=== PATIENT | male | born 1970 | race Caucasian/White ===

== ENCOUNTER 2019-07-16 16:10 | Observation (INO) | payer OTHER ==
[2019-07-16] MEDS ORDERED: SODIUM CHLORIDE 0.9% 1,000 ML IV STA (16:25)
--- NOTE | 2019-07-16 16:28 | ED ---
General Adult HPI - General Chief complaint: Alcohol Stated complaint: ETOH Time Seen by Provider: 07/16/19 16:15 Source: patient, EMS, RN notes reviewed Mode of arrival: EMS Limitations: no limitations - History of Present Illness Initial comments: Patient is a pleasant 48-year-old male presenting to the emergency Department with concerns for alcohol abuse and intoxication. Patient was trying to go to [facility] today and he was refused secondary to a level 0.35. Patient admits to drinking alcohol heavily for the past several days. Patient did have some alcohol today. Patient has no other complaints other than alcohol problems and alcohol intoxication. No depression or suicidal thoughts. No recent injury. Review of Systems ROS Statement: Those systems with pertinent positive or pertinent negative responses have been documented in the HPI. ROS Other: All systems not noted in ROS Statement are negative. Constitutional: Denies: fever Eyes: Denies: eye pain ENT: Denies: ear pain Respiratory: Denies: cough Cardiovascular: Denies: chest pain Endocrine: Denies: fatigue Gastrointestinal: Denies: abdominal pain, nausea, vomiting Genitourinary: Denies: dysuria Musculoskeletal: Denies: back pain Skin: Denies: rash Neurological: Denies: weakness Past Medical History Past Medical History: Hypertension History of Any Multi-Drug Resistant Organisms: None Reported Past Psychological History: Anxiety, Depression Smoking Status: Current some day smoker Past Alcohol Use History: None Reported, Abuse, Daily Past Drug Use History: None Reported General Exam Limitations: no limitations General appearance: alert, in no apparent distress Head exam: Present: normocephalic Eye exam: Present: normal appearance, PERRL, EOMI, nystagmus ENT exam: Present: normal oropharynx Neck exam: Present: normal inspection Respiratory exam: Present: normal lung sounds bilaterally Cardiovascular Exam: Present: regular rate, normal rhythm GI/Abdominal exam: Present: soft. Absent: distended, tenderness Extremities exam: Present: normal inspection Neurological exam: Present: alert Psychiatric exam: Present: normal affect, normal mood Skin exam: Present: normal color Course Vital Signs 07/16/19 16:12 Temperature 97.7 F Pulse Rate 101 H Respiratory 16 Rate Blood Pressure 138/97 O2 Sat by Pulse 94 L Oximetry Medical Decision Making - Medical Decision Making Patient reevaluated. Case was discussed in detail with Dr. Schneider, who will admit covering for hospital call. - Lab Data Result diagrams: 07/16/19 16:40 03/09/20 16:40 Lab Results 07/16/19 07/16/19 07/16/19 Range/Units 16:40 16:40 16:40 WBC 4.5 (3.8-10.6) k/uL RBC 4.33 (4.30-5.90) m/uL Hgb 11.0 L (13.0-17.5) gm/dL Hct 35.4 L (39.0-53.0) % MCV 81.7 (80.0-100.0) fL MCH 25.5 (25.0-35.0) pg MCHC 31.2 (31.0-37.0) g/dL RDW 17.5 H (11.5-15.5) % Hypochromasia Moderate Anisocytosis Slight PT 11.3 (9.0-12.0) sec INR 1.1 (<1.2) Sodium 141 (137-145) mmol/L Potassium 3.9 (3.5-5.1) mmol/L Chloride 104 (98-107) mmol/L Carbon Dioxide 22 (22-30) mmol/L Anion Gap 15 mmol/L BUN 13 (9-20) mg/dL Creatinine 0.57 L (0.66-1.25) mg/dL Est GFR (CKD-EPI)AfAm >90 (>60 ml/min/1.73 sqM) Est GFR (CKD-EPI)NonAf >90 (>60 ml/min/1.73 sqM) Glucose 89 (74-99) mg/dL Calcium 8.8 (8.4-10.2) mg/dL Magnesium 1.4 L (1.6-2.3) mg/dL Total Bilirubin 0.4 (0.2-1.3) mg/dL AST 125 H (17-59) U/L ALT 56 H (4-49) U/L Alkaline Phosphatase 83 (38-126) U/L Total Protein 8.1 (6.3-8.2) g/dL Albumin 4.7 (3.5-5.0) g/dL Amylase 50 (30-110) U/L Lipase 239 (23-300) U/L Serum Alcohol 293 H* mg/dL Disposition Clinical Impression: Alcoholic intoxication Disposition: ADMITTED IP TO THIS [facility] Is patient prescribed a controlled substance at d/c from ED?: No Referrals: None,Stated [Primary Care Provider] - 1-2 days Decision Time: 17:20
[2019-07-16 16:58] LABS: INR 1.1 (<1.2); Prothrombin Time 11.3 sec (9.0-12.0)
[2019-07-16 17:03] LABS: ALT 56 U/L (4-49); AST 125 U/L (17-59); African American GFR (CKD) >90 (>60 ml/min/1.73 sqM); Albumin 4.7 g/dL (3.5-5.0); Alkaline Phosphatase 83 U/L (38-126); Amylase 50 U/L (30-110); Anion Gap 15 mmol/L; Blood Urea Nitrogen 13 mg/dL (9-20); Calcium 8.8 mg/dL (8.4-10.2); Carbon Dioxide 22 mmol/L (22-30); Chloride 104 mmol/L (98-107); Glucose 89 mg/dL (74-99); Magnesium 1.4 mg/dL (1.6-2.3); Non-African American GFR(CKD) >90 (>60 ml/min/1.73 sqM); Potassium 3.9 mmol/L (3.5-5.1); Sodium 141 mmol/L (137-145); Total Bilirubin 0.4 mg/dL (0.2-1.3); Total Protein 8.1 g/dL (6.3-8.2)
[2019-07-16 17:10] LABS: Alcohol 293 mg/dL
[2019-07-16 17:17] LABS: Anisocytosis Slight; Basophils % (A) 1 %; Eosinophils % (A) 1 %; HCT 35.4 % (39.0-53.0); Hypochromasia Moderate; Lymphocytes # (A) 1.2 k/uL (1.0-4.8); Lymphocytes % (A) 28 %; MCH 25.5 pg (25.0-35.0); MCHC 31.2 g/dL (31.0-37.0); MCV 81.7 fL (80.0-100.0); Mean Platelet Volume 9.1; Monocytes # (A) 0.3 k/uL (0-1.0); Monocytes % (A) 6 %; Neutrophils # (A) 2.7 k/uL (1.3-7.7); Neutrophils % (A) 61 %; RBC 4.33 m/uL (4.30-5.90); RDW 17.5 % (11.5-15.5); WBC 4.5 k/uL (3.8-10.6)
[2019-07-16] MEDS ORDERED: NALOXONE 0.4 MG/ML 1 ML VIAL IV PRN (17:20)
[2019-07-16] MEDS ORDERED: LORazepam 2 MG/ML INJ IV PRN ×2 (17:22)
[2019-07-16 17:33] LABS: Poikilocytosis (M) Present; Target Cells Present
[2019-07-16 17:34] LABS: Platelet Count 75 k/uL (150-450)
[2019-07-16] MEDS: THIAMINE 100 MG TAB PO SCH (18:01)
[2019-07-16] MEDS ORDERED: HALOPERIDOL LACTATE 5 MG/ML 1 ML VIAL IM PRN (19:49)
[2019-07-16] MEDS ORDERED: Potassium Replacement Protocol 1 EACH MISC MISCELLANE PRN (20:01)
[2019-07-16] MEDS ORDERED: HYDROcodone/APAP 5-325MG 1 EACH TAB PO PRN (20:01)
[2019-07-16] MEDS ORDERED: Magnesium Replacement Protocol 1 EACH MISC MISCELLANE PRN (20:01)
[2019-07-16] MEDS ORDERED: TEMAZEPAM 15 MG CAP PO PRN (20:01)
[2019-07-16] MEDS: LORazepam 2 MG/ML INJ IV PRN (20:26)
[2019-07-16] MEDS: NICOTINE 14MG/24HR PATCH TRANSDERM SCH (20:26)
[2019-07-16] MEDS: busPIRone HCl 10 MG TAB PO SCH (20:26)
[2019-07-16] MEDS: traZODone HCL 100 MG TAB PO SCH (20:26)
[2019-07-16] MEDS: FAMOTIDINE 20 MG TAB PO SCH (20:26)
[2019-07-16 20:51] LABS: ALT 46 U/L (4-49); AST 105 U/L (17-59); African American GFR (CKD) >90 (>60 ml/min/1.73 sqM); Alkaline Phosphatase 67 U/L (38-126); Anion Gap 11 mmol/L; Blood Urea Nitrogen 12 mg/dL (9-20); Calcium 8.4 mg/dL (8.4-10.2); Carbon Dioxide 26 mmol/L (22-30); Chloride 101 mmol/L (98-107); Glucose 117 mg/dL (74-99); Non-African American GFR(CKD) >90 (>60 ml/min/1.73 sqM); Potassium 3.8 mmol/L (3.5-5.1); Sodium 138 mmol/L (137-145); Total Bilirubin 0.3 mg/dL (0.2-1.3); Total Protein 6.9 g/dL (6.3-8.2)
--- NOTE | 2019-07-16 21:44 | HP ---
HISTORY AND PHYSICAL DATE OF SERVICE: 07/16/2019. HISTORY OF PRESENT ILLNESS: This 48-year-old gentleman who was admitted alcohol intoxication is being followed by primary physician in the [place] area. The patient apparently taking significant alcohol. The patient presented to [facility]. Apparently because the patient is apparently too drunk, the patient was sent to [facility] for further evaluation and treatment. Serum alcohol was 293. There is no history of fever, rigors. No history of headache, loss of consciousness or seizures. The patient had previous history of hypertension, anxiety, depression, and DTs also. PAST MEDICAL HISTORY: History of hypertension, history of anxiety, depression, DTs, history of alcohol intake. MEDICATIONS: 1. Trazodone 100 mg q.h.s. 2. BuSpar 10 mg p.o. b.i.d. 3. Celexa 20 mg daily. ALLERGIES: None. FAMILY HISTORY: History of diabetes in the family. SOCIAL HISTORY: History of smoking and alcohol. REVIEW OF SYSTEMS: ENT: No diminished vision. No diminished hearing. CARDIOVASCULAR: No angina or palpitations. RESPIRATORY: As mentioned earlier. GI No nausea, vomiting, diarrhea. no dysuria. NERVOUS SYSTEM: No numbness or weakness. ALLERGY/IMMUNOLOGY: No asthma or hayfever. MUSCULOSKELETAL as mentioned earlier. HEMATOLOGY/ONCOLOGY: No history of anemia. ENDOCRINE: No history of diabetes or hypothyroidism. CONSTITUTIONAL: As mentioned earlier. DERMATOLOGY: Negative. RHEUMATOLOGY negative. PSYCHIATRY as mentioned earlier. PHYSICAL EXAMINATION: The patient is alert and oriented times three. Pulse is 117. Blood pressure 133/82, respiration 20, temperature 98.4, pulse ox 97 percent on room air. HEENT: Conjunctivae normal. Oral mucosa moist. NECK is no jugular venous distention. No carotid bruit. No lymph node enlargement. Cardiovascular system: S1, S2. No S3, no S4. RESPIRATORY: Breath sounds diminished in the bases. A few scattered rhonchi. No crackles. ABDOMEN: Soft, nontender. No mass palpable. LEGS: No edema. No swelling. NERVOUS SYSTEM: Higher functions as mentioned earlier. Moves all four limbs. Minimal diffuse tremors present. LYMPHATICS: No lymph nodes palpable in the neck, axillae or groin. SKIN: No ulcers, rashes. JOINTS no active deforming arthropathy. LABS: At this time shows WBC 4.2, hemoglobin 11, platelets 75. Magnesium 1.4. AST 125, ALT is 56. Serum alcohol 293. ASSESSMENT: 1. Acute alcohol intoxication, present on admission. 2. Acute delirium tremens, early. 3. Hypomagnesemia. 4. Increased AST/ALT, alcoholic hepatitis. 5. Anemia, normocytic secondary to nutritional possibly. 6. Thrombocytopenia. 7. History of hypertension. 8. History of anxiety, depression. 9. History of DTs. 10.History of nicotine dependence. 11.History of ETOH. 12.FULL CODE. RECOMMENDATIONS AND DISCUSSION: This 48-year-old gentleman who presented with multiple complex medical issues, we will monitor the patient closely, continue the current medications, management and symptomatic treatment. I recommend resume the home medications and also add CIWA protocol. Otherwise, replace magnesium and check lytes closely. Supplement vitamins. Prognosis guarded because of multiple complex medical issues. Further recommendations to follow. Discussed with the patient who understands and agrees. Prognosis guarded. Watch for DT precautions and as well as alcohol withdrawal precautions. MMODL / IJN: [id number] /
[2019-07-17 04:55] VITALS: RESP 16
[2019-07-17] MEDS: LORazepam 2 MG/ML INJ IV PRN ×3 (05:13→13:51)
[2019-07-17] MEDS: THIAMINE 100 MG TAB PO SCH ×2 (07:59→16:55)
[2019-07-17] MEDS: PANTOPRAZOLE 40 MG TABLET PO SCH (07:59)
[2019-07-17] MEDS: CITALOPRAM HYDROBROMIDE 20 MG TAB PO SCH (08:00)
[2019-07-17] MEDS: NICOTINE 14MG/24HR PATCH TRANSDERM SCH (08:00)
[2019-07-17] MEDS: busPIRone HCl 10 MG TAB PO SCH ×2 (08:00→21:28)
[2019-07-17] MEDS: FAMOTIDINE 20 MG TAB PO SCH (08:00)
[2019-07-17 09:08] LABS: Anisocytosis Slight; Basophils % (A) 1 %; Eosinophils % (A) 1 %; HCT 30.5 % (39.0-53.0); Hypochromasia Slight; Lymphocytes # (A) 0.7 k/uL (1.0-4.8); Lymphocytes % (A) 31 %; MCH 25.7 pg (25.0-35.0); MCV 82.7 fL (80.0-100.0); Mean Platelet Volume 9.6; Monocytes # (A) 0.2 k/uL (0-1.0); Monocytes % (A) 9 %; Neutrophils # (A) 1.2 k/uL (1.3-7.7); Neutrophils % (A) 54 %; RBC 3.68 m/uL (4.30-5.90); RDW 18.2 % (11.5-15.5); WBC 2.3 k/uL (3.8-10.6)
[2019-07-17 09:16] LABS: HGB 9.5 gm/dL (13.0-17.5); Platelet Count 61 k/uL (150-450)
[2019-07-17] MEDS ORDERED: Magnesium Replacement Protocol 1 EACH MISC MISCELLANE PRN (17:33)
[2019-07-17] MEDS: MAGNESIUM SULFATE-D5W PMX 1 GM in DEXTROSE/WATER 1 100ML.BAG IVPB SCH ×3 (18:04→21:29)
[2019-07-17 18:41] LABS: Appearance,Urine Clear (Clear); Bilirubin,Urine Negative (Negative); Blood,Urine Negative (Negative); Color,Urine Light Yellow; Glucose,Urine (UA) Negative (Negative); Ketones,Urine Negative (Negative); Leukocyte Esterase,Urine Negative (Negative); Nitrite,Urine Negative (Negative); Protein,Urine Negative (Negative); Specific Gravity,Urine 1.007 (1.001-1.035); Urobilinogen,Urine <2.0 mg/dL (<2.0)
[2019-07-17] MEDS: MAGNESIUM OXIDE 400 MG TAB PO SCH (19:47)
[2019-07-17] MEDS: traZODone HCL 100 MG TAB PO SCH (21:28)
[2019-07-17] MEDS: cloNIDine HCL 0.1 MG TAB PO SCH (21:28)
[2019-07-17] MEDS: HEPARIN SODIUM,PORCINE 5,000 UNIT/ML 1 ML VIAL SQ SCH (21:29)
--- NOTE | 2019-07-17 22:26 | PN ---
PROGRESS NOTE DATE OF SERVICE: 07/17/2019 This 48-year-old gentleman who was admitted with alcohol intoxication is being closely monitored at this time. No chest pain. No palpitations. No fever. Patient also had early delirium tremens. PHYSICAL EXAMINATION: Alert and oriented x3. Pulse 90, blood pressure 158/99, respirations 16, temperature 98.2, pulse ox 96% on room air. HEENT: Conjunctivae normal. NECK: No jugular venous distention. CARDIOVASCULAR SYSTEM: S1, S2 muffled. RESPIRATORY SYSTEM: Breath sounds diminished at the bases. No rhonchi. No crackles. ABDOMEN: Soft, non-tender. LEGS: No edema. No swelling. NERVOUS SYSTEM: Diffusely weak and tremulous. LAB STUDIES: WBC 2.3, hemoglobin 9.5, platelets 61. Magnesium is 1. Alcohol is 293. REVIEW OF SYSTEMS: CARDIOVASCULAR SYSTEM: No angina, palpitations. RESPIRATORY SYSTEM: As mentioned earlier. GI: As mentioned earlier. : No dysuria or retention. NERVOUS SYSTEM: No numbness, weakness. CURRENT MEDICATIONS: Reviewed. They include [place], BuSpar, Celexa, Haldol, Ativan, magnesium replacement protocol, Narcan, Habitrol, Protonix, vitamin B1. Doses are reviewed. ASSESSMENT: 1. Acute alcohol intoxication, present on admission. 2. Acute delirium tremens. 3. Severe hypomagnesemia, persistent. 4. Increased AST, ALT, acute alcoholic hepatitis. 5. Hypertension. 6. Anemia, normocytic, secondary to nutritional possibly. 7. Thrombocytopenia. 8. History of hypertension. 9. History of anxiety, depression. 10.History of delirium tremens. 11.History of nicotine dependence. 12.History of ETOH. 13.FULL CODE. RECOMMENDATIONS AND DISCUSSION: In this 48-year-old gentleman who presented with multiple complex medical issues, at this time I recommend to continue current medications, continue with symptomatic treatment. Otherwise, [facility] protocol for DT precautions. Otherwise I would also recommend magnesium replacement protocol as well as extra magnesium 400 mg p.o. t.i.d. Other than that, monitor electrolytes closely. AST and ALT will be monitored closely. Alcohol level was extremely high on admission. The prognosis is guarded. Further recommendations to follow. Discussed with the patient at length. MMODL / IJN: [id number] /
[2019-07-18 05:53] VITALS: BP 155/101; PULSE 85; TEMP 97.4
[2019-07-18] MEDS: busPIRone HCl 10 MG TAB PO SCH (08:56)
[2019-07-18] MEDS: CITALOPRAM HYDROBROMIDE 20 MG TAB PO SCH (08:57)
[2019-07-18] MEDS: HEPARIN SODIUM,PORCINE 5,000 UNIT/ML 1 ML VIAL SQ SCH (08:57)
[2019-07-18] MEDS: PANTOPRAZOLE 40 MG TABLET PO SCH (08:57)
[2019-07-18] MEDS: THIAMINE 100 MG TAB PO SCH (08:57)
[2019-07-18] MEDS: NICOTINE 14MG/24HR PATCH TRANSDERM SCH (08:57)
[2019-07-18] MEDS: MAGNESIUM OXIDE 400 MG TAB PO SCH (08:57)
[2019-07-18] MEDS: cloNIDine HCL 0.1 MG TAB PO SCH (08:57)
[2019-07-18 09:32] LABS: Anisocytosis Slight; Basophils % (A) 1 %; Eosinophils % (A) 2 %; HCT 32.5 % (39.0-53.0); Hypochromasia Slight; Lymphocytes # (A) 0.6 k/uL (1.0-4.8); Lymphocytes % (A) 32 %; MCH 25.6 pg (25.0-35.0); MCHC 30.8 g/dL (31.0-37.0); Mean Platelet Volume 10.6; Monocytes # (A) 0.1 k/uL (0-1.0); Monocytes % (A) 5 %; Neutrophils # (A) 1.1 k/uL (1.3-7.7); Neutrophils % (A) 57 %; RBC 3.91 m/uL (4.30-5.90); RDW 18.2 % (11.5-15.5); WBC 1.9 k/uL (3.8-10.6)
[2019-07-18 09:49] LABS: Platelet Count 53 k/uL (150-450)
[2019-07-18] MEDS ORDERED: Magnesium Replacement Protocol 1 EACH MISC MISCELLANE PRN (09:50)
[2019-07-18] MEDS: MAGNESIUM SULFATE-D5W PMX 1 GM in DEXTROSE/WATER 1 100ML.BAG IVPB SCH ×2 (10:39→11:57)
[2019-07-18] MEDS ORDERED: MULTIVITAMINS, THERA 1 EACH TAB PO SCH (12:00)
[2019-07-18] MEDS ORDERED: FOLIC ACID 1 MG TAB PO SCH (12:00)
--- NOTE | 2019-07-18 13:17 | P.DS ---
Providers Date of admission: 07/16/19 17:21 Expected date of discharge: 07/18/19 Attending physician: Adeel Schneider MD Primary care physician: Stated None Hospital Course: Final diagnosis Acute alcohol intoxication, present on admission Acute delirium tremens Severe hypomagnesemia, persistent Increased ALT, AST, acute alcoholic hepatitis Hypertension Anemia, normocytic, secondary to nutritional possibly Thrombocytopenia History of hypertension history of anxiety, depression history of delirium tremens history of nicotine dependence history of EtOH Full code Discharge disposition Patient is being discharged in a stable condition with guarded prognosis to [facility] continued rehab. Total time taken is greater than 35 minutes. History of present illness This is a 48-year-old male who was recently admitted with alcohol intoxication and was being closely monitored. Patient was going to [facility] and showed up there intoxicated and was brought here for further evaluation. Patient was maintained on the CIWA protocol. Patient was experiencing some early delirium tremens. A prescription for Ativan was given prior to discharge. Currently no reports of chest pain, shortness of breath, or palpitations. Is afebrile. No reports of nausea or vomiting and patient is tolerating diet. Currently patient's condition is stable and is ready for discharge to [facility] today. Guarded prognosis. On exam vital signs are stable. Temp is 97.4 F, pulse is 85, respirations are 16, blood pressure is 155/101, oxygen saturation is 97% on room air. Cardio S1, S2 are muffled. Respiratory system shows diminished breath sounds at the bases with no rhonchi noted. Mild expiratory wheezing noted. Abdomen is soft and nontender. Nervous system shows no focal deficits. Please refer to medication reconciliation sheet for a list of medications. Patient Condition at Discharge: Stable Plan - Discharge Summary Discharge Rx Participant: No New Discharge Prescriptions: New LORazepam [Ativan] 1 mg PO TID PRN #10 tab PRN Reason: Anxiety cloNIDine HCL [Catapres] 0.1 mg PO TID tab Folic Acid 1 mg PO DAILY@1200 tab Nicotine 14Mg/24Hr Patch [Habitrol] 1 patch TRANSDERM DAILY patch Magnesium Oxide [Mag-Ox] 400 mg PO BID tab Multivitamins, Thera [Multivitamin (formulary)] 1 each PO DAILY@1200 tab Pantoprazole [Protonix] 40 mg PO AC-BRKFST tablet. Thiamine [Vitamin B-1] 100 mg PO BID-W/MEALS tab Continue busPIRone HCl [Buspar] 10 mg PO BID Citalopram Hydrobromide [CeleXA] 20 mg PO DAILY traZODone HCL 100 mg PO HS Discharge Medication List Citalopram Hydrobromide [CeleXA] 20 mg PO DAILY 07/16/19 [History] busPIRone HCl [Buspar] 10 mg PO BID 07/16/19 [History] traZODone HCL 100 mg PO HS 07/16/19 [History] Folic Acid 1 mg PO DAILY@1200 tab 07/18/19 [Rx] LORazepam [Ativan] 1 mg PO TID PRN #10 tab 07/18/19 [Rx] Magnesium Oxide [Mag-Ox] 400 mg PO BID tab 07/18/19 [Rx] Multivitamins, Thera [Multivitamin (formulary)] 1 each PO DAILY@1200 tab 07/18/19 [Rx] Nicotine 14Mg/24Hr Patch [Habitrol] 1 patch TRANSDERM DAILY patch 07/18/19 [Rx] Pantoprazole [Protonix] 40 mg PO AC-BRKFST tablet. 07/18/19 [Rx] Thiamine [Vitamin B-1] 100 mg PO BID-W/MEALS tab 07/18/19 [Rx] cloNIDine HCL [Catapres] 0.1 mg PO TID tab 07/18/19 [Rx] Follow up Appointment(s)/Referral(s): None,Stated [Primary Care Provider] - 1-2 days Activity/Diet/Wound Care/Special Instructions: Patient will be admitted to [facility] upon discharge from the hospital. Call admissions and they will set up pick-up for the patient [facility] [phone] ext: [phone] Follow-up with primary care provider upon discharge Continue current diet Activity as tolerated Discharge Disposition: OTHER INSTITUTION NOT DEFINED
== END 2019-07-18 13:51 ==
LOC: EC 16:10 → 5NMEDONC 17:21
PROVIDERS: ADMIT Internal Medicine; ATTEND Internal Medicine
DX: F10.231 Alcohol dependence with withdrawal delirium (principal); Y90.7 Blood alcohol level of 200-239 mg/100 ml; R06.2 Wheezing; D64.9 Anemia, unspecified; D69.6 Thrombocytopenia, unspecified; E83.42 Hypomagnesemia; F17.200 Nicotine dependence, unspecified, uncomplicated; I10 Essential (primary) hypertension; K70.10 Alcoholic hepatitis without ascites; F41.9 Anxiety disorder, unspecified; F32.9 Major depressive disorder, single episode, unspecified; Z83.3 Family history of diabetes mellitus; Z79.899 Other long term (current) drug therapy
CPT/HCPCS: 96361 ×3; 96365; 96366 ×2; 96372 ×2; 96376; 96375; 99285; 36415; 80053; 82150; 83690; 83735 ×3; 85025 ×3; 85610; 81003; G0378 ×3; G0480; J2060 ×2; J1644 ×2; J3475 ×2; 80320